=== PATIENT | female | born 1995 | race Caucasian/White ===

== ENCOUNTER 2018-01-11 03:24 | Emergency (ER) | payer BC ==
[~2018-01-11] VITALS: Ht 165.1 cm; Wt 62.7 kg
[~2018-01-11 03:24] MED LIST: BUSPIRONE; CELEXA PO; INDERAL 10MG10 MG PO; OMEPRAZOLE40 MG PO; PROBIOTIC & ACI1 CAP PO; RANITIDINE150 MG PO; RECLIPSEN 0.151 TAB PO; ZINC10 M4
[2018-01-11] MEDS ORDERED: LEXAPRO 10MG10 MG PO (03:54)
[2018-01-11 04:04] LABS: URINE APPEARANCE HAZY; URINE COLOR YELLOW
[2018-01-11 04:05] LABS: PH-URINE 5.5 (5.0 - 8.0); URINE BILIRUBIN NEGATIVE (NEGATIVE); URINE BLOOD NEGATIVE (NEGATIVE); URINE GLUCOSE NEGATIVE (NEGATIVE); URINE KETONE NEGATIVE (NEGATIVE); URINE LEUKOCYTE ESTERASE 1+ (NEGATIVE); URINE NITRATE NEGATIVE (NEGATIVE); URINE PROTEIN(semi-quant) NEGATIVE (NEGATIVE); URINE UROBILINOGEN NORMAL (NORMAL)
[2018-01-11] MEDS ORDERED: CEPHALEXIN500 M2 PO (04:27)
[2018-01-11 04:35] VITALS: BP 105/69
== END 2018-01-11 04:35 | disposition home or self-care (01) ==
LOC: ED 03:24
PROVIDERS: Physician Assistant
DX: O23.41 Unspecified infection of urinary tract in pregnancy, first trimester (principal); Z3A.10 10 weeks gestation of pregnancy; O99.341 Other mental disorders complicating pregnancy, first trimester; F41.9 Anxiety disorder, unspecified; Z79.899 Other long term (current) drug therapy

== ENCOUNTER → 2022-05-27 | Outpatient (CLI) | payer OTHER ==
[~2022-05-27] MED LIST changes: +CEPHALEXIN500 M2 PO; +LEXAPRO 10MG10 MG PO
== END ==
LOC: RAD 16:54
DX: M43.17 Spondylolisthesis, lumbosacral region (principal); M51.36 Other intervertebral disc degeneration, lumbar region; M51.37 Other intervertebral disc degeneration, lumbosacral region; Z87.81 Personal history of (healed) traumatic fracture

== ENCOUNTER → 2024-03-15 | Outpatient (REF) | payer BC | LOC: LAB 18:20 | DX: J06.9 Acute upper respiratory infection, unspecified (principal); Z20.822 Contact with and (suspected) exposure to COVID-19 ==

== ENCOUNTER 2024-05-13 17:17 | Emergency (ER) | payer BC ==
[~2024-05-13] VITALS: Ht 165.1 cm; Wt 57.3 kg
[2024-05-13 17:56] LABS: BASO # 0.03 K/mm3 (0.02-0.10); EOS # 0.07 K/mm3 (0.04-0.40); EOS % 1.4 % (1.0-5.0); HEMATOCRIT 41.3 % (37.0-47.0); HEMOGLOBIN 13.9 g/dL (12.5-16.0); LYMPH# 1.49 K/mm3 (1.50-4.00); MEAN CELL VOLUME 95 fl (78-100); MEAN CORPUSCULAR HEMOGLOBIN 32 pg (27-31); MEAN CORPUSCULAR HGB CONC 34 g/dL (33-37); MEAN PLATELET VOLUME 10.2 fl (7.4-10.4); MONO # 0.53 K/mm3 (0.20-0.80); NEU # 3.01 K/mm3 (1.40-6.50); PLATELET COUNT 231 K/mm3 (130-400); RED BLOOD COUNT 4.33 M/mm3 (4.10-5.30); RED CELL DISTRIBUTION WIDTH 11.5 % (11.5-14.5); WHITE BLOOD COUNT 5.1 K/mm3 (4.8-10.8)
[2024-05-13 18:03] LABS: ALBUMIN 4.4 g/dL (3.5-5.0)
[2024-05-13 18:06] LABS: TOTAL PROTEIN 7.6 g/dL (6.4-8.3)
[2024-05-13 19:45] LABS: URINE APPEARANCE SLIGHTLY CLOUDY (CLEAR); URINE BILIRUBIN NEGATIVE (NEGATIVE); URINE BLOOD NEGATIVE (NEGATIVE); URINE COLOR YELLOW (YELLOW); URINE GLUCOSE NEGATIVE (NEGATIVE); URINE KETONE 1+ (NEGATIVE); URINE LEUKOCYTE ESTERASE NEGATIVE (NEGATIVE); URINE NITRATE NEGATIVE (NEGATIVE); URINE PROTEIN(semi-quant) NEGATIVE (NEGATIVE)
[2024-05-13 19:46] LABS: URINE MUCUS PRESENT (NOT PRESENT)
[2024-05-13] MEDS ORDERED: Iohexol 300 - 100 ML VIAL IV ONE (19:58)
[2024-05-13] MEDS ORDERED: NS 100 ML IV SCH (19:59)
[2024-05-13 21:05] VITALS: BP 105/78
== END 2024-05-13 21:05 | disposition home or self-care (01) ==
LOC: ED 17:17
PROVIDERS: Family Medicine
DX: N83.202 Unspecified ovarian cyst, left side (principal)
CPT/HCPCS: Q9967